=== PATIENT | female | born 1955 | race Caucasian/White ===

== ENCOUNTER → 2016-12-24 | Outpatient (CLI) | payer BC, OTHER ==
[~2016-12-24] MED LIST: CALCTAB5 PO; COEN1CAP28 PO; TAMO20TA9 PO; TUMERIC PO
[2016-12-24 13:19] VITALS: BP 136/86; PULSE 84; TEMP 36.7; O2SAT 95
--- NOTE | 2016-12-24 16:15 | Radiation Oncology Follow-Up ---
Radiation Oncology Follow-Up Date of Visit Dec 24, 2016. 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 She denies any changes to her breast. She is noted no masses or tenderness and no change of the axilla. She' s had no swelling of her arm. She is up-to-date on mammography. She had a mammogram 01/01/2016. This showed no mammographic evidence of malignancy. One year screening was recommended. This was given a BI-RADS Category 1. She does have mammograms scheduled for next week. She continues on tamoxifen and denies side effects. Allergies Coded Allergies: No Known Allergies (Unverified , 04/21/15) NONE Home Medications Scheduled Calcium (Caltrate), 600 MG PO BID Coenzyme Q10 (Ubidecarenone) (Co Q10), 200 MG PO DAILY Tamoxifen (Nolvadex), 20 MG PO QAM [Tumeric ], 1 CPLT PO QAM Review of Systems Gastrointestinal: Symptoms: WNL Oral: Symptoms: No Problems Respiratory: Symptoms: WNL Urinary: Symptoms: WNL Skin: Symptoms: No Problems Breast: Right Upper Arm Measurement: 30.5 Right Mid Arm Measurement: 24.1 Right Wrist Measurement: 15.1 Left Upper Arm Measurement: 31.0 Left Mid Arm Measurement: 23.6 Left Wrist Measurement: 15.2 Arm Dominence: Right Physical Exam Vital Signs Date Time Temp Pulse Resp B/P (MAP) Pulse Ox O2 Delivery O2 Flow Rate FiO2 12/24/16 13:19 36.7 84 20 136/86 95 Fatigue: None General Appearance: no apparent distress Eyes: normal inspection, EOMI ENT: normal ENT inspection, hearing grossly normal Neck: no adenopathy Respiratory/Chest: lungs clear, no respiratory distress, no accessory muscle use Breast: Breast examination reveals well-healed incisions of the right breast. There are no masses or tenderness and no axillary adenopathy. She has no nipple changes or skin retractions. Using the [place] score of cosmesis she has a in excellent outcome. The left breast showed no masses or tenderness and no axillary adenopathy. Cardiovascular: regular rate, rhythm, no gallop, no murmur Extremities: no pedal edema Neurologic/Psychiatric: no motor/sensory deficits, alert, normal mood/affect Skin: warm/dry Pain Management Pain Rating (0-10): 0 Additional Studies Patient: DONNY HOANG [facility] Rec: [id number] Address1: [address] [place] [address] Address2: [place] [address] Acct ID: [id number] Date: 1955 Sex: F Ref Phy: Att Phy: Coty Cervantes PA-C Kiah Phy: Del Manuel M.D. Inter Phy: Saskia Leong MD [facility] Zip: [place] [id number] SC: C.MAMM Report #: [id number] Safety Administrator: MARYBETH Diagnosis: ASYMPTOMATIC/HX RIGHT BREAST CA Service Date: 01/01/16 MNE: [id number] Ordering Dr: Coty Cervantes PA-C CC: Coty Cervantes PA-C CONF: DICTATED BY: Saskia Leong MD MAMMOGRAPHY REPORT BILATERAL DIGITAL SCREENING MAMMOGRAM TOMOSYNTHESIS WITH CAD: 01/01/2016 CLINICAL HISTORY: Asymptomatic. Personal history of breast cancer. TECHNIQUE: Breast tomosynthesis, in addition to standard 2D mammography was performed.. Current study was also evaluated with a Computer Aided Detection ( CAD) system. COMPARISON: Comparison is made to exams dated: 12/30/2014 mammogram and 2012 mammogram - [facility]. BREAST COMPOSITION: The tissue of both breasts is heterogeneously dense, which may obscure small masses. FINDINGS: There are post operative findings in the right breast. No suspicious mass, architectural distortion or cluster of microcalcifications is seen. IMPRESSION: IMPRESSION: ACR BI-RADS CATEGORY 1: NEGATIVE There is no mammographic evidence of malignancy. A 1 year screening mammogram is recommended. The patient will receive written notification of the results. Approximately 10% of breast cancers are not detected with mammography. A negative mammographic report should not delay biopsy if a clinically suggestive mass is present. Saskia Leong M.D. /paul:01/01/2016 16:12:59 Online Content Developer: Yoav CAVAZOS (R)), [facility] letter sent: Normal 1/2 BI-RADS Code: ACR BI-RADS Category 1: Negative Dictated by: Saskia Leong MD Signed by: Saskia Leong MD Assessment & Plan Plan: Continue annual mammography. Continue regular follow-up with her primary care provider and medical oncologist. She continues on tamoxifen. We asked her to return to our office in 1 year. She may call if she has any questions or concerns in the interim. Total Time In Follow-Up I spent 20 minutes speaking to the patient performing examination. I spent 15 minutes reviewing information and completing this note. Copy To Del Manuel M.D.; Vargas Chong M.D. Problem Qualifiers (1) Breast cancer: Breast location: upper outer quadrant of breast Estrogen receptor status: positive Patient sex: female Laterality: right Qualified Codes: C50.411 - Malignant neoplasm of upper-outer quadrant of right female breast; Z17.0 - Estrogen receptor positive status [ER+]
== END | disposition home or self-care (01) ==
LOC: C.ONC 12:57
PROVIDERS: ATTEND Physician Assistant Medical
DX: Z08 Encounter for follow-up examination after completed treatment for malignant neoplasm (principal); Z92.3 Personal history of irradiation; Z85.3 Personal history of malignant neoplasm of breast

== ENCOUNTER → 2017-01-06 | Outpatient (CLI) | payer OTHER ==
--- NOTE | 2017-01-07 15:09 | MAMMOGRAPHY REPORT ---
BILATERAL DIGITAL SCREENING MAMMOGRAM TOMOSYNTHESIS WITH CAD: 01/06/2017 CLINICAL HISTORY: Asymptomatic. Personal history of breast cancer. TECHNIQUE: Breast tomosynthesis in addition to standard 2D mammography was performed. Current study was also evaluated with a Computer Aided Detection (CAD) system. COMPARISON: Comparison is made to exams dated: 01/01/2016 mammogram, 01/20/2015 breast MRI, 12/31/19 15 mammogram, 07/12/2013 mammogram, 07/27/2012 specimen, and 07/27/2012 localization - [facility]. BREAST COMPOSITION: The tissue of both breasts is heterogeneously dense, which may obscure small mas ses. FINDINGS: There is expected architectural distortion and 2 surgical clips in the upper outer quadran t of the right breast, at the site of prior lumpectomy. There is also skin irregularity of the right breast and slight asymmetry of the size of the breasts. There are a few scattered stable benign-ellie earing microcalcifications in both breasts. No new suspicious mass, architectural distortion or clus ter of suspicious microcalcifications is seen. IMPRESSION: ACR BI-RADS CATEGORY 1: NEGATIVE There is no mammographic evidence of malignancy. A 1 year screening mammogram is recommended. The pa tient will receive written notification of the results. Approximately 10% of breast cancers are not detected with mammography. A negative mammographic report should not delay biopsy if a clinically suggestive mass is present. Lucretia Saleem M.D. ay/:01/06/2017 15:43:03 Ophthalmic Asst: Beth DEVRIESR, M, [facility] letter sent: Normal 1/2 BI-RADS Code: ACR BI-RADS Category 1: Negative
== END | disposition home or self-care (01) ==
LOC: C.MAMM 12:11
PROVIDERS: ATTEND Physician Assistant Medical
DX: Z12.31 Encounter for screening mammogram for malignant neoplasm of breast (principal); Z85.3 Personal history of malignant neoplasm of breast